=== PATIENT | female | born 1970 | race Caucasian/White ===

== ENCOUNTER 2020-11-22 13:52 | Emergency (ER) | payer MEDICAID ==
[~2020-11-22 13:52] MED LIST: DEPAKOTE500 M2 PO; FIORICET1 CAP PO; KLONOPIN0.5 MG PO; PHENERGAN25 M3 PO; PROZAC20 MG PO
[2020-11-22] MEDS ORDERED: NALTREXONE HYDR50 MG PO (14:14)
[2020-11-22] MEDS ORDERED: MYSOLINE50 M1 PO (14:14)
[2020-11-22] MEDS ORDERED: MACROBID 1100 MG/CAP PO (14:14)
[2020-11-22] MEDS ORDERED: FOLIC ACID1 MG PO (14:15)
[2020-11-22] MEDS ORDERED: KETOCONAZOLE 1120 ML TP (14:15)
[2020-11-22] MEDS ORDERED: ALDACTONE100 M1 PO (14:15)
[2020-11-22] MEDS ORDERED: POTASSIUM CHLO20 ME3 PO (14:16)
[2020-11-22] MEDS ORDERED: CLARITIN10 M1 PO (14:16)
[2020-11-22] MEDS ORDERED: GABAPENTIN TAB600 MG PO ×2 (14:17→14:18)
[2020-11-22] MEDS ORDERED: PHENERGAN 25 TA25 MG PO (14:17)
[2020-11-22] MEDS ORDERED: FLUOXETINE HCL20 MG PO (14:18)
[2020-11-22] MEDS ORDERED: METHOCARBAMOL500 M1 PO (14:18)
[2020-11-22] MEDS ORDERED: ZYLOPRIM 100MG100 MG PO (14:18)
[2020-11-22] MEDS ORDERED: TYLENOL 325MG325 MG PO (14:19)
[2020-11-22] MEDS ORDERED: OLANZAPINE5 M3 PO (14:19)
[2020-11-22] MEDS ORDERED: MIRALAX17 GM PO (14:19)
[2020-11-22] MEDS ORDERED: DIVALPROEX SOD500 MG PO (14:20)
[2020-11-22 14:49] LABS: BASO # 0.03 (0.02-0.10); EOS # 0.04 (0.04-0.40); EOS % 0.4 % (1.0-5.0); HEMATOCRIT 38.9 % (37.0-47.0); HEMOGLOBIN 13.6 g/dL (12.5-16.0); LYMPH# 2.65 (1.50-4.00); MEAN CELL VOLUME 96 fl (78-100); MEAN CORPUSCULAR HEMOGLOBIN 34 pg (27-31); MEAN CORPUSCULAR HGB CONC 35 g/dL (33-37); MEAN PLATELET VOLUME 9.8 fl (7.4-10.4); MONO # 1.03 (0.20-0.80); NEU # 6.65 (1.40-6.50); PLATELET COUNT 226 K/mm3 (130-400); RED BLOOD COUNT 4.05 M/mm3 (4.10-5.30); RED CELL DISTRIBUTION WIDTH 11.6 % (11.5-14.5); WHITE BLOOD COUNT 10.5 K/mm3 (4.8-10.8)
[2020-11-22 14:58] LABS: ALBUMIN 3.6 g/dL (3.5-5.0)
[2020-11-22 14:59] LABS: POTASSIUM 3.8 mmol/L (3.5-5.1)
[2020-11-22 15:00] LABS: CALCIUM 8.6 mg/dL (8.3-10.5)
[2020-11-22 15:01] LABS: TOTAL PROTEIN 6.7 g/dL (6.4-8.3)
[2020-11-22 15:03] LABS: TOTAL BILIRUBIN 0.4 mg/dL (0.2-1.2)
[2020-11-22 17:25] LABS: URINE WBC 0 /hpf (0-3)
[2020-11-22 17:38] LABS: URINE APPEARANCE CLOUDY; URINE BILIRUBIN NEGATIVE (NEGATIVE); URINE BLOOD NEGATIVE (NEGATIVE); URINE COLOR YELLOW; URINE GLUCOSE NEGATIVE (NEGATIVE); URINE KETONE NEGATIVE (NEGATIVE); URINE LEUKOCYTE ESTERASE NEGATIVE (NEGATIVE); URINE NITRATE NEGATIVE (NEGATIVE); URINE PROTEIN(semi-quant) NEGATIVE (NEGATIVE); URINE UROBILINOGEN NORMAL (NORMAL)
[2020-11-22 17:55] VITALS: BP 108/62
== END 2020-11-22 18:03 | disposition home or self-care (01) ==
LOC: ED 13:52
PROVIDERS: Physician Assistant
DX: E86.0 Dehydration (principal); R53.1 Weakness; F32.9 Major depressive disorder, single episode, unspecified; M79.7 Fibromyalgia; F17.210 Nicotine dependence, cigarettes, uncomplicated; Z79.899 Other long term (current) drug therapy; Z88.6 Allergy status to analgesic agent; W01.0XXA Fall on same level from slipping, tripping and stumbling without subsequent striking against object, initial encounter
CPT/HCPCS: J7030